=== PATIENT | male | born 1960 | race Caucasian/White ===

== ENCOUNTER 2017-04-28 21:20 | Emergency (ER) | payer OTHER ==
[~2017-04-28] VITALS: Ht 188 cm; Wt 75.7 kg
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
[2017-04-28] MEDS ORDERED: MORPHINE SULFATE INJ 2 MG/ML DISP.SYRIN ONE (21:34)
[2017-04-28] MEDS: MORPHINE SULFATE INJ 2 MG/ML DISP.SYRIN IM ONE (21:37)
--- NOTE | 2017-04-28 21:59 | NUR ---
PT RETURNED FROM CT.
--- NOTE | 2017-04-28 22:07 | NUR ---
PT IS STILL C/O LT SHOULDER PAIN. PT STATED THAT THE MEDICATION DID NOT HELP.
--- NOTE | 2017-04-28 22:23 | NUR ---
DR. HUGGINS IS AT THE BEDSIDE MOVING PT'S ARM. PT IS C/O SEVERE PAIN WITH MOVEMENT. DR. HUGGINS WANTS TO HAVE THE PT RE-EVALUATED ONCE HE IS SOBER.
--- NOTE | 2017-04-28 22:32 | NUR ---
PT REC'D AN ICE PACK TO THE LT SHOULDER.
--- NOTE | 2017-04-28 23:47 | NUR ---
Sandra Schultz MD called.
[2017-04-29] MEDS ORDERED: IBUPROFEN 400 MG TABLET ONE (00:22)
--- NOTE | 2017-04-29 00:26 | NUR ---
PT IS IN CT.
[2017-04-29] MEDS: IBUPROFEN 400 MG TABLET PO ONE (00:40)
--- NOTE | 2017-04-29 00:44 | NUR ---
PT RETURNED FROM CT.
--- NOTE | 2017-04-29 01:31 | NUR ---
PT HAS A LEFT CLAVICLE FX. PT IS REC'ING A SLING TO THE LUE.
--- NOTE | 2017-04-29 02:25 | NUR ---
PT REQUESTED A URINAL. URINAL GIVEN. APPROX 300 ML YELLOW URINE OUTPUT NOTED.
--- NOTE | 2017-04-29 02:33 | NUR ---
PT APPEARS TO BE RESTING COMFORTABLY WITH NO S/S OF PAIN OR DISTRESS.
--- NOTE | 2017-04-29 04:04 | NUR ---
PT APPEARS TO BE SLEEPING SOUNDLY. VSS. WILL CONTINUE TO MONITOR THE PT.
--- NOTE | 2017-04-29 05:20 | NUR ---
DR. ANGELES IS AT THE BEDSIDE SPEAKING TO THE PT.
[2017-04-29] MEDS ORDERED: ALBU8.5H2 IH (05:52)
[2017-04-29] MEDS ORDERED: ASPI81TA2 PO (05:52)
[2017-04-29] MEDS ORDERED: ZOLOFT PO (05:52)
[2017-04-29] MEDS ORDERED: LISI10TA5 PO (05:52)
[2017-04-29] MEDS ORDERED: RESCUE INHALER (05:52)
--- NOTE | 2017-04-29 05:53 | NUR ---
Angela prabhakar in [facility] - 04/29/17 at 0554 by KETAN CALLING REPORT TO TELE NURSE.
--- NOTE | 2017-04-29 05:55 | NUR ---
PT APPEARS TO BE SLEEPING SOUNDLY WITH NO S/S OF PAIN OR DISTRESS.
--- NOTE | 2017-04-29 07:12 | NUR ---
RECEIVED REPORT FOR TESFAYE. PATIENT SLEEPING AT THIS TIME. WILL CONTINUE TO MONITOR.
--- NOTE | 2017-04-29 08:10 | NUR ---
SLING APPLIED TO LEFT ARM/SHOULDER PER MD.
--- NOTE | 2017-04-29 08:20 | NUR ---
Patient discharged to home in stable condition. Written and verbal after care instructions given. Patient verbalizes understanding of instruction.
[2017-04-29 08:21] VITALS: BP 125/56
--- NOTE | 2017-04-29 08:23 | NUR ---
offered homeless resource; refused placement
== END 2017-04-29 08:23 | disposition home or self-care (01) ==
LOC: ER 21:24
DX: S42.032A Displaced fracture of lateral end of left clavicle, initial encounter for closed fracture (principal); R51 Headache; F10.129 Alcohol abuse with intoxication, unspecified; F17.210 Nicotine dependence, cigarettes, uncomplicated; G56.00 Carpal tunnel syndrome, unspecified upper limb; Z79.82 Long term (current) use of aspirin; V19.9XXA Pedal cyclist (driver) (passenger) injured in unspecified traffic accident, initial encounter; Y93.55 Activity, bike riding; Y92.89 Other specified places as the place of occurrence of the external cause; Y99.8 Other external cause status
CPT/HCPCS: 70450-TC; 71010-TC; 72125-TC; 73200-TC; A4606; J2270; L0172; Z7610

== ENCOUNTER 2018-04-16 15:28 | Emergency (ER) | payer OTHER ==
[~2018-04-16] VITALS: Ht 190.5 cm; Wt 77.1 kg
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
--- NOTE | 2018-04-16 18:20 | NUR ---
Crutches dispensed. Pt instructed on proper use of crutches. Patient able to demonstrate correct use of crutches. KNEE IMMOBILIZER APPLIED TO AFFECTED KNEE.
[2018-04-16] MEDS ORDERED: HYDROCODONE/APAP 10/325MG 1 EA TABLET ONE (18:26)
[2018-04-16] MEDS ORDERED: HYDROCODONE/APAP 10/325MG 1 EA TABLET PO ONE (18:30)
--- NOTE | 2018-04-16 18:45 | NUR ---
PT DID NOT WANT TO WAIT FOR HIS CD. Patient discharged to home in stable condition. Written and verbal after care instructions given. Patient verbalizes understanding of instruction.
[2018-04-16 18:47] VITALS: BP 118/74
== END 2018-04-16 18:47 | disposition home or self-care (01) ==
LOC: ER 15:32
DX: S82.091A Other fracture of right patella, initial encounter for closed fracture (principal); M25.551 Pain in right hip; F17.210 Nicotine dependence, cigarettes, uncomplicated; Z60.2 Problems related to living alone; V87.8XXA Person injured in other specified noncollision transport accidents involving motor vehicle (traffic), initial encounter; Y93.89 Activity, other specified; Y92.89 Other specified places as the place of occurrence of the external cause; Y99.8 Other external cause status
CPT/HCPCS: 29505; 73502; 73564; 99284; A4606; Z7610

== ENCOUNTER 2022-08-09 16:38 | Emergency (ER) | payer OTHER ==
[~2022-08-09] VITALS: Ht 190.5 cm; Wt 81.6 kg
--- NOTE | 2022-08-09 16:40 | NUR ---
[facility]BS C/O R SIDED GROIN PAIN 04/16 COMES AND GOES PT HAD A HERNIA 7 YEARS AGO STATES THAT ITS THE SAME PAIN
--- NOTE | 2022-08-09 17:20 | NUR ---
PT SEEN BY FOR EVHOSSEIN
[2022-08-09 17:47] VITALS: BP 123/68
== END 2022-08-09 17:47 | disposition home or self-care (01) ==
LOC: ER 16:53
DX: K40.90 Unilateral inguinal hernia, without obstruction or gangrene, not specified as recurrent (principal); F17.210 Nicotine dependence, cigarettes, uncomplicated; Z60.2 Problems related to living alone

== ENCOUNTER 2023-06-04 13:01 | Emergency (ER) | payer OTHER ==
[~2023-06-04] VITALS: Ht 190.5 cm; Wt 81.6 kg
[2023-06-04 13:55] LABS: BASOPHILS # (AUTO) 0.1 K/uL (0.0-0.2); BASOPHILS % (AUTO) 1.1 % (0.0-2.0); EOSINOPHILS # (AUTO) 0.1 K/uL (0.0-0.7); EOSINOPHILS % (AUTO) 1.6 % (0.0-6.0); HEMATOCRIT 42 % (39-51); HEMOGLOBIN 13.9 g/dL (13.5-17.5); LYMPHOCYTES # (AUTO) 1.4 K/uL (0.8-4.8); LYMPHOCYTES % (AUTO) 24.5 % (20.0-44.0); MEAN CORPUSCULAR HEMOGLOBIN 32 PG (26.0-33.0); MEAN CORPUSCULAR HGB CONC 34 g/dl (31.0-36.0); MEAN CORPUSCULAR VOLUME 97 fL (80-96); MONOCYTES # (AUTO) 0.4 K/uL (0.1-1.30); MONOCYTES % (AUTO) 6.9 % (2.0-12.0); NEUTROPHILS # (AUTO) 3.7 K/uL (1.8-8.9); NEUTROPHILS % (AUTO) 65.9 % (43.0-81.0); PLATELET COUNT (AUTO) 278 K/uL (150-450); RED CELL DISTRIBUTION WIDTH 13.7 % (11.5-15.0); WHITE BLOOD COUNT (AUTO) 5.7 K/uL (4.3-11.0)
[2023-06-04 14:01] LABS: CALCIUM, SERUM 9.6 mg/dL (8.5-10.1); POTASSIUM 3.9 mmol/L (3.5-5.1)
[2023-06-04 14:05] LABS: INR 1.11 (0.91-1.10); PARTIAL THROMBOPLASTIN TIME 27.6 SEC (24.3-34.3); PROTHROMBIN TIME 11.6 SECS (9.2-11.1)
[2023-06-04 14:08] LABS: ALBUMIN 3.9 g/dL (3.4-5.0); BILIRUBIN,DIRECT 0.2 mg/dL (0.0-0.2); BILIRUBIN,TOTAL 0.5 mg/dL (0.2-1.0); TOTAL PROTEIN, SERUM 7.4 g/dL (6.4-8.2)
[2023-06-04 15:04] LABS: APPEARANCE,URINE CLEAR (CLEAR); BILIRUBIN,URINE 1+ (NEGATIVE); BLOOD, URINE NEGATIVE Ery/uL (NEGATIVE); COLOR,URINE YELLOW (YELLOW); KETONES,URINE TRACE mg/dL (NEGATIVE); LEUKOCYTE ESTERASE ,URINE NEGATIVE (NEGATIVE); NITRITE, URINE NEGATIVE (NEGATIVE); PH,URINE 5.5 (5.0-8.0); PROTEIN,URINE NEGATIVE (NEGATIVE); UGLUCOSE NEGATIVE (NEGATIVE)
[2023-06-04 15:12] LABS: ADD URINE CULTURE NO; BACTERIA,URINE None seen /HPF (None Seen); MUCUS,URINE Many /LPF (None Seen); RBC,URINE 0-2 /HPF (0-2); SQUAMOUS EPITHELIAL CELL,UR 0-2 /HPF (None Seen); WBC,URINE 0-2 /HPF (0-3)
[2023-06-04] MEDS ORDERED: IBUP-1953 PO (16:22)
[2023-06-04] MEDS ORDERED: TAMS-12 PO (16:22)
[2023-06-04 17:09] VITALS: BP 125/79; TEMP 98; O2SAT 98
== END 2023-06-04 17:10 | disposition home or self-care (01) ==
LOC: ER 13:07
DX: N20.0 Calculus of kidney (principal); F17.200 Nicotine dependence, unspecified, uncomplicated; Z79.899 Other long term (current) drug therapy; Z60.2 Problems related to living alone
CPT/HCPCS: 36415; 76870-TC; 80048-TC; 80076-TC; 81001; 83690-TC; 85025-TC; 85730-TC

== ENCOUNTER 2024-05-02 11:01 | Emergency (ER) | payer OTHER ==
[~2024-05-02] VITALS: Ht 190.5 cm; Wt 68.9 kg
[~2024-05-02 11:01] MED LIST: IBUP-1953 PO; TAMS-12 PO
[2024-05-02 11:29] VITALS: TEMP 98
[2024-05-02 11:54] LABS: BASOPHILS % (AUTO) 0.3 % (0.0-2.0); EOSINOPHILS % (AUTO) 0.4 % (0.0-6.0); HEMATOCRIT 46 % (39-51); HEMOGLOBIN 15.5 g/dL (13.5-17.5); LYMPHOCYTES # (AUTO) 1.3 K/uL (0.8-4.8); LYMPHOCYTES % (AUTO) 22.5 % (20.0-44.0); MEAN CORPUSCULAR HEMOGLOBIN 29 PG (26.0-33.0); MEAN CORPUSCULAR HGB CONC 33 g/dl (31.0-36.0); MEAN CORPUSCULAR VOLUME 88 fL (80-96); MONOCYTES # (AUTO) 0.2 K/uL (0.1-1.30); MONOCYTES % (AUTO) 3.9 % (2.0-12.0); NEUTROPHILS # (AUTO) 4.3 K/uL (1.8-8.9); NEUTROPHILS % (AUTO) 72.9 % (43.0-81.0); PLATELET COUNT (AUTO) 244 K/uL (150-450); RED BLOOD CELL COUNT(AUTO) 5.29 MIL/uL (4.5-6.0); RED CELL DISTRIBUTION WIDTH 14.1 % (11.5-15.0)
[2024-05-02] MEDS: IV NS 0.9% 1,000 ML BAG IV ONE (12:00)
[2024-05-02 12:08] LABS: CALCIUM, SERUM 9.8 mg/dL (8.5-10.1); CARBON DIOXIDE 27 mmol/L (21-32); CHLORIDE 100 mmol/L (98-107); CREATININE 0.8 mg/dL (0.6-1.3); GLUCOSE 107 mg/dL (74-106); POTASSIUM 3.6 mmol/L (3.5-5.1); SODIUM SERUM 136 mmol/L (136-145); UREA NITROGEN, BLOOD 17 mg/dL (7-18)
[2024-05-02 12:20] LABS: ALANINE AMINOTRANSFERASE 43 U/L (12-78); ALBUMIN 4.8 g/dL (3.4-5.0); ALKALINE PHOSPHATASE 87 U/L (46-116); ASPARTATE AMINOTRANSFERASE 34 U/L (15-37); BILIRUBIN,DIRECT 0.2 mg/dL (0.0-0.2); BILIRUBIN,TOTAL 0.7 mg/dL (0.2-1.0); NT-PRO BNP 31 pg/mL (0-125); TOTAL PROTEIN, SERUM 8.8 g/dL (6.4-8.2)
[2024-05-02 14:08] VITALS: BP 130/85; O2SAT 100
== END 2024-05-02 13:50 | disposition home or self-care (01) ==
LOC: ER 11:19
DX: R55 Syncope and collapse (principal); R51.9 Headache, unspecified; R53.1 Weakness; E86.0 Dehydration; F17.210 Nicotine dependence, cigarettes, uncomplicated; Z60.2 Problems related to living alone
CPT/HCPCS: 99285; 96360; 70450; 71045; 93005; 85025; 80048; 80076; 36415; 84484; 83880; J7030

== ENCOUNTER 2024-12-13 14:47 | Emergency (ER) | payer OTHER ==
[~2024-12-13] VITALS: Ht 190.5 cm; Wt 81.6 kg
[~2024-12-13 14:47] MED LIST changes: +ERYT3.5O9 RIGHTEYE
[2024-12-13 15:10] VITALS: BP 131/92; TEMP 98.5
[2024-12-13 16:57] VITALS: O2SAT 99
== END 2024-12-13 16:58 | disposition home or self-care (01) ==
LOC: ER 14:48
DX: M70.21 Olecranon bursitis, right elbow (principal); F17.210 Nicotine dependence, cigarettes, uncomplicated; Z60.2 Problems related to living alone
CPT/HCPCS: 73080-TC